=== PATIENT | female | born 1995 | race Hispanic/Latino ===

== ENCOUNTER 2022-02-19 01:00 | Outpatient (CLI) | payer OTHER ==
[2022-02-19 01:56] VITALS: BP 112/70
[2022-02-19] MEDS ORDERED: LACTATED RINGERS 500 ML IV ONE (03:33)
== END 2022-02-19 03:49 | disposition home or self-care (01) ==
LOC: TRG 01:00 → APU 01:02 → TRG 03:49
PROVIDERS: ATTEND Obstetrics & Gynecology
DX: Z34.92 Encounter for supervision of normal pregnancy, unspecified, second trimester (principal); Z3A.25 25 weeks gestation of pregnancy
CPT/HCPCS: 36415; 84112